=== PATIENT | male | born 1945 | race Caucasian/White ===

== ENCOUNTER 2025-03-04 10:15 | Outpatient (AMB) | payer MEDICARE, SELFPAY ==
--- NOTE | 2025-03-04 10:16 | A.OFFVIS_ITS ---
Intake Visit Reasons: REBAR FABRICATOR/PCP Ref for PAD Intake Note: REBAR FABRICATOR for PVD s/p Left Knee replacement 07/2025. Pt states Left LE cellulitis and discoloration. Pt states he has skin breakdown very easily and when he scratches it he has bleeding. Pt states he has been wearing compression socks when active. Pt does golf. Pt also has some right LE discoloration for many years, possibly 10 years. Exercise Science Internship Required: No Accompanied by: Self / Same As Patient Allergies amoxicillin [From Augmentin] Allergy (Mild, Verified 03/04/25 10:31) unknown clavulanic acid [From Augmentin] Allergy (Mild, Verified 03/04/25 10:31) unknown iodine Allergy (Mild, Verified 03/04/25 10:31) Unknown HPI HPI REBAR FABRICATOR/PCP Ref for PAD: Details: Very pleasant 79-year-old gentleman patient presents for painful varicose veins. Complaints include pain , swelling of lower extremities, cramping, fatigue, and heaviness of the lower extremities, recurrent ulcers of left lower extremity. In addition he notes skin discoloration.. It has been affecting there daily activities including walking. It is noted more so in left leg. He notes it was more significant after his left knee replacement on 08/11/2024 done at [facility]. He had recurrent bouts of cellulitis which was subsequently treated with doxycycline. At the current time he has a nonhealing ulcer on the left calf. Patient denies any previous venous surgery or injections. Patient denies any history of DVT/ PE. Patient denies any history of phlebitis. Trial of compression includes - [id number] They now present for vascular evaluation regarding their varicose veins. [facility] Surgical History (Updated 03/04/25 @ 10:24 by QUINCY Rizo) History of left knee replacement Social History (Updated 03/04/25 @ 10:25 by QUINCY Rizo) Patient Tobacco Use Status: Former Tobacco user Review of Systems Const Reports as per HPI ENT Reports no additional complaints Card Denies chest pain, Denies chest pain at rest and Denies chest pain with activity Resp Denies chest congestion and Denies cough GI Reports no additional complaints Musc Details: pain over varicosities, aching of lower extremities, swelling, cramping, heaviness and tiredness, itching Denies abnormal gait Skin/Breast Reports pruritus and Denies wounds Neuro Reports no additional complaints and Denies abnormal gait Psych Denies no additional complaints Physical Exam Const General: cooperative, healthy appearing and comfortable Orientation/consciousness: oriented to person, oriented to place and oriented to time Neck Carotids: no bruits Chest Chest palpation & inspection: normal inspection of the chest and normal palpation of entire chest wall Resp Effort & Inspection: normal respiratory effort and able to speak in complete sentences Cardio Rate: regular rate Heart sounds: S1 normal heart sound present and S2 normal heart sound present Peripheral pulses: Peripheral pulses 2+ throughout GI Inspection: Yes normal to inspection Skin Other: +2 edema, large rope-like varicosities greater than 4 mm CEAP Classification C6 - left ankle ulcer Ep - Etiology Primary As - superficial veins P - reflux General skin exam: dry skin Neuro General: oriented to person, oriented to place and oriented to time Extrem Right lower extremity: full ROM, normal capillary refill and edema Left lower extremity: full ROM, normal capillary refill and edema Psych Mental Status: mental status grossly normal Assessment & Plan Assessment & Plan (1) Varicose veins of left lower extremity with inflammation: Code(s): I83.12 - Varicose veins of left lower extremity with inflammation Category: Medical Plan: In short, the patient has evidence of venous insufficiency. I have discussed the pathophysiology with the patient. In addition I have provided informational material regarding venous disease to the patient. We have discussed conservative measures including compression, elevation, and exercise. I have also provided a handout regarding appropriate use of compression stockings and where to purchase good compression stockings as well. I have taken the liberty of ordering venous insufficiency testing with the patient. They will follow up with me after testing. The patient had an opportunity to ask questions regarding the treatment plan. All questions were answered. Imaging studies, laboratory studies and physical exam results were discussed and reviewed in detail. No major barriers to understanding were identified. The patient expressed understanding and agreement with the above treatment plan. The patient is aware they should contact our office by phone for worsening of the current condition or the appearance of new symptoms. Thank you for allowing me to participate in the vascular care of this patient. If you have any questions or concerns regarding the treatment for the above condition please do not hesitate to contact me. The office telephone contact is [phone]. This note is constructed using voice recognition software. While every effort has been made to ensure accuracy, cloth stock sorter errors may have been included. Thank you for allowing me to participate in the care of your patient. Yours sincerely, Ravinder Kyle MD, FACS, R.P.V.I. Orders: Orders US venous duplex LE BI 1 Week I83.12 - Varicose veins of left lower extremity with inflammation Coding Level of Care Code New Pt Level 4 (88115) Diagnoses Varicose veins of left lower extremity with inflammation I83.12
--- OUTSIDE RECORDS SUMMARY | 2025-03-04 11:49 | XMS_ITS | Patient Health Record ---
Author Organization [facility] [place] Address [address] [place] [address] Care Team Providers Care Nurse Receptionist Name Role Phone Fanny Hodge MD Primary Care Provider Gabriel Dumont Unavailable [phone] Allergies Allergen (clinical drug ingredient) Drug/Non Drug Allergy documented on EMR Reaction Allergy Type Onset Date Status Iodine facial swelling s/p iodine dye for ct scan Drug Allergy Active Reason For Referral No Information Medications Medication SIG (Take, Route, Frequency, Duration) Notes Start Date End Date Status Aspirin 325 MG 1 tablet Orally Once a day 01/22/2016 Active Voltaren 1 % as directed Transder mal apply bid to affected areas for 30 days Not-Taking Ciclopirox Active Gabapentin 400 MG Orally twice a day Not-Taking Fish Oil 1200 MG 1 capsule Orally Onc e a day 01/22/2016 Active Citalopram Hydrobromide 40 MG Oral for 90 Active Lisinopril 40 MG Oral for 90 A ctive Glucosamine Chond Complex/MSM Orally 01/22/2016 Active Multivitamin Adults 50+ Orally 01/22/2016 Active Lovastatin 20 MG Oral for 90 A ctive Voltaren 1 % as directed Transder mal apply bid to affected areas for 30 days 04/19/2016 Not-Taking Vitamin D3 2000 UNIT Orally 01/22/2016 Active busPIRone HCl 10 MG Oral for 90 Active Social History Tobacco Use: Social History Observation Description Date Details (start date - stop date) Former Smoker NA - NA Tobacco Use/Smoking Question Answer Notes Are you a: former smoker When did you stop smoking? 30 yrs ago Additional Findings: Tobacco Non-User Current no n-smoker Tobacco use other than smoking: Question Answer Notes Are you an other tobacco user? No Plan Of Treatment Pending Test Test Name Order Date X ray : Foot, left 2V 01/26/2016 X ray : Foot, right 2V 01/26/2016 [id number] NAIL, 6 OR MORE 05/16/2017 [id number] NAIL, 6 OR MORE 08/22/2017 [id number] NAIL, 6 OR MORE 12/12/2017 [id number] Plate 04/05/2016 84380- Debride <25 sq cm 04/19/2016 13735- Debride <25 sq cm 12/13/2016 68172- Debride <25 sq cm 12/27/2016 Insurance Providers Payer Name Payer Address Payer Phone Subscriber Number Group Number Insured Name Patient Relationship to Insured Coverage Start Date Coverage End Date Medicare National Govt Sv[employer] Inc [address] [facility] [place] [address] [id number] Mitul Chairez Self - patient is the insured [employer] [address] [place] [address] [id number] Mitul Chairez Self - patient is the insured Medical (General) History Medical History History ICD Code Anxiety bronchitis acute Depression High blood pressure Sciatica Warts Surgical History Surgery Date(Month/Year)
== END 2025-03-04 11:23 | disposition home or self-care (01) ==
PROVIDERS: PCP Nurse Practitioner Family; Visit Provider Surgery Vascular Surgery
DX: I83.12 Varicose veins of left lower extremity with inflammation (principal)
CPT/HCPCS: 99204

== ENCOUNTER → 2025-03-04 10:15 | Outpatient (BNVA) | payer MEDICARE, SELFPAY | PROVIDERS: PCP Nurse Practitioner Family; Visit Provider Surgery Vascular Surgery | DX: I83.12 Varicose veins of left lower extremity with inflammation (principal) | CPT/HCPCS: 99202 ==

== ENCOUNTER 2025-04-01 08:18 | Outpatient (REF) | payer MEDICARE, SELFPAY ==
--- NOTE | ~2025-04-01 | US_ITS ---
EXAMINATION: US LOWER EXTREMITY VENOUS (REFLUX EXAM), BILATERAL CLINICAL INFORMATION: Varices. COMPARISON: None. TECHNIQUE: Color flow triplex imaging and compression Doppler was performed to evaluate both the deep and the superficial systems bilaterally. To evaluate the superficial system, the examination was performed in the upright position. Color-flow Doppler ultrasound and compression ultrasound were utilized. In addition, maneuvers were utilized to demonstrate reflux. FINDINGS: 1. DEEP VENOUS ULTRASOUND OF THE RIGHT LOWER EXTREMITY: Common Femoral Vein: Compressible, normal respiratory variation and augmented flow. Femoral Vein: Compressible, normal color flow and augmentation. Popliteal Vein: Compressible, normal augmentation. Deep Reflux: There is no evidence of reflux in the deep system in either the common femoral vein, superficial femoral or the popliteal vein. There is no evidence of a Barth's cyst. 2. SUPERFICIAL ULTRASOUND WITH DOPPLER OF RIGHT LOWER EXTREMITY: GREAT SAPHENOUS VEIN: Saphenofemoral Junction: 0.8 cm; Reflux: 0 ms Proximal Thigh: 0.4 cm; Reflux: 0 ms Mid Thigh: 0.4 cm; Reflux: 0 ms Distal Thigh: 0.4 cm; Reflux: 0 ms At Knee: 0.3 cm; Reflux: 0 ms Proximal Calf: 0.5 cm; Reflux: 0 ms Mid Calf: 0.3 cm; Reflux: 0 ms Distal Calf: 0.4 cm; Reflux: 0 ms DUPLICATED MEDIAL GREAT SAPHENOUS VEIN: Diameter: None imaged Reflux: NA DUPLICATED LATERAL GREAT SAPHENOUS VEIN: Diameter: None imaged Reflux: NA SMALL SAPHENOUS VEIN: Saphenopopliteal Junction: 0.3 cm; Reflux: 0 ms Proximal: 0.2 cm; Reflux: 0 ms Distal: 0.3 cm; Reflux: 0 ms VEIN OF GIACOMINI: Size: 0.2 cm. Reflux: NA PERFORATORS: Location: Proximal thigh. Proximal to distal calf. Size: 0.2-0.3 cm. Reflux: NA VARICOSITIES: Location: Saphenous vein junction. Size: There are 0.4 cm. Reflux: NA 3. DEEP VENOUS ULTRASOUND OF THE LEFT LOWER EXTREMITY: Common Femoral Vein: Compressible, normal respiratory variation and augmented flow. Femoral Vein: Compressible, normal color flow and augmentation. Popliteal Vein: Compressible, normal augmentation. Deep Reflux: There is no evidence of reflux in the deep system in either the common femoral vein, superficial femoral or the popliteal vein. There is no evidence of a Barth's cyst. 4. SUPERFICIAL ULTRASOUND WITH DOPPLER OF LEFT LOWER EXTREMITY: GREAT SAPHENOUS VEIN: Saphenofemoral Junction: 0.7 cm; Reflux: 0 ms Proximal Thigh: 0.5 cm; Reflux: 0 ms Mid Thigh: 0.5 cm; Reflux: 0 ms Distal Thigh: 0.6 cm; Reflux: 0 ms At Knee: 0.6 cm; Reflux: 1300 ms Proximal Calf: 0.4 cm; Reflux: 0 ms Mid Calf: 0.3 cm; Reflux: 2896 ms Distal Calf: 0.3 cm; Reflux: 708 ms DUPLICATED MEDIAL GREAT SAPHENOUS VEIN: Diameter: 0.4 cm. Reflux: NA DUPLICATED LATERAL GREAT SAPHENOUS VEIN: Diameter: 0.3 cm. Reflux: NA SMALL SAPHENOUS VEIN: Saphenopopliteal Junction: Not identified. Proximal: 0.3 cm; Reflux: 0 ms Distal: 0.2 cm; Reflux: 0 ms VEIN OF GIACOMINI: Size: NA Reflux: NA PERFORATORS: Location: Small saphenous vein mid segment. Mid thigh. Mid to distal calf. Size: 0.2-0.3 cm. Reflux: NA VARICOSITIES: Location: Saphenous vein junction. Proximal to distal calf. At the knee. Size: 0.3-0.5 cm. Reflux: 980 ms at the proximal calf. US/US venous insuf bilat IMPRESSION: Right: No venous insufficiency. Perforators without reflux. Varices without reflux, saphenous vein junction. Left: Venous insufficiency, great saphenous vein at the knee and from the mid calf to the ankle. Varices with reflux in the proximal calf. Electronically signed by: Joaquín Drew MD 04/01/2025 10:23 AM EDT
--- OUTSIDE RECORDS SUMMARY | 2025-04-01 08:23 | XMS_ITS | Patient Health Record ---
Author Organization [facility] [place] Address [address] [place] [address] Care Team Providers Care Billiard Table Assembler Name Role Phone Fanny Hodge MD Primary Care Provider Gabriel Dumont Unavailable [phone] Allergies Allergen (clinical drug ingredient) Drug/Non Drug [...] directed Transder mal apply bid to affected areas; Duration: 30 days Not-Taking Ciclopirox Active Gabapentin 400 MG Orally twice a day Not-Taking Fish Oil 1200 MG 1 capsule Orally Onc e a day 01/22/2016 Active Citalopram Hydrobromide 40 MG Oral; Duration: 90 Active Lisinopril 40 MG Oral; Duration: 90 Active Glucosamine Chond Complex/MSM Orally 01/22/2016 Active Multivitamin Adults 50+ Orally 01/22/2016 Active Lovastatin 20 MG Oral; Duration: 90 Active Voltaren 1 % as directed Transder mal apply bid to affected areas; Duration: 30 days 04/19/2016 Not-Taking Vitamin D3 2000 UNIT Orally 01/22/2016 Active busPIRone HCl 10 MG Oral; Duration: 90 Active Social History Tobacco Use: Social [...] X ray : Foot, right 2V 01/26/2016 [id number] NAIL, 6 OR MORE 05/16/2017 [id number] NAIL, 6 OR MORE 08/22/2017 [id number] NAIL, 6 OR MORE 12/12/2017 [id number] Plate 04/05/2016 35286- Debride <25 sq cm 04/19/2016 26854- Debride <25 sq cm 12/13/2016 57217- Debride <25 sq cm 12/27/2016 Insurance Providers Payer Name Payer Address Payer Phone Subscriber Number Group Number Insured Name Patient Relationship to Insured Coverage Start Date Coverage End Date Medicare National Govt Svcs Inc [address] [place] [address] [id number] Mitul Chairez Self - patient is the insured [employer] [address] [place] [address] [phone] [id number] Mitul Chairez Self - patient is the insured Medical (General) History Medical History History ICD Code Anxiety bronchitis acute Depression High blood pressure Sciatica Warts Surgical History Surgery Date(Month/Year)
--- OUTSIDE RECORDS SUMMARY | 2025-04-01 08:23 | XMS_ITS | Encounter Summary ---
Author Organization [facility] Address [address] [place] [address] Care Team Providers Care Resource Manager Name Role Phone Unavailable Primary Care Provider Unavailabl e Encounter Details Date Type Department Care Team (Late st Contact Info) Description 03/31/2025 Refill [facility] Internal Medicine [address] [place] [address] [phone] Galdino Moulton MD [address] [place], [place] [phone] Social History Tobacco Use Types Packs/Day Years Used Date Smoking Tobacco: Former Cigarettes 1.5 20 0 11/14/1963 - 11/14/1983 Smokeless Tobacco: Never Comments::QUIT 25 YRS AGO [facility] 1.5 PPD FOR 23 YRS Alcohol Use Standard Drinks/Week Comments Yes 0 (1 standard drink = 0.6 oz pur e alcohol) 6 drinks per week [facility] Utilities Answer Date Recorded In the past 12 months has [employer], gas, oil, or water [employer] threatened to shut off services in your home? No 09/05/2024 Hunger Vital Sign Answer Date Recorded Within the past 12 months, y ou worried that your food would run out before you got the money to buy more. Never true 09/05/20 24 Within the past 12 months, t he food you bought just didn't last and you didn't have money to get more. Never true 09/05/2024 Transportation Answer Date Recorded In the past 12 months, has l ack of reliable transportation kept you from medical appointments, meetings, work or from getting things needed for daily living? No 09/05/2024 Housing Answer Date Recorded Housing Risk Low 2 09/05/2024 Housing Risk Medium Not on file 09/05/2024 Housing Risk High Not on file 09/05/2024 What is your living situation today? [facility] 09/05/2024 Education Answer Date Recorded What is the highest level of school you have completed or the highest degree you have received? 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
--- OUTSIDE RECORDS SUMMARY | 2025-04-01 08:23 | XMS_ITS | Patient Health Record ---
[facility] Address [address] [place] [address] Support Name Relationship Address Phone VAIBHAV MAURO Guarantor Unknown [phone] Reason For Referral No Information Plan Of Treatment No Information
--- OUTSIDE RECORDS SUMMARY | 2025-04-01 08:23 | XMS_ITS | Clinical Summary ---
Author Organization [employer] Address [address] [place] [address] Care Team Providers Care Cutter Out Name Role Phone Unavailable Primary Care Provider Unavailabl e Social History Tobacco Use Types Packs/Day Years Used Date Smoking Tobacco: Never Assessed Sex and Gender Information Value Date Recorded Sex Assigned at Male 07/25/2022 10:28 AM EDT Legal Sex Male 10:28 AM EDT Gender Identity Male 07/25/2022 10:28 AM EDT Sexual Orientation Don't know 07/25/2022 10 :28 AM EDT Plan of Treatment Health Maintenance Due Date Last Done Comments Depression Screening 1945 Lipid Panel 1945 Alcohol/Substance Use Screening 1957 Tobacco Screening 1957 Zoster Vaccines (2 of 3) 12/30/2011 11/04/2011 DTaP/Tdap/Td Vaccines (2 - Td or Tdap) 05/05/2019 05/05/2009 RSV Patients and Patients Aged 60 years or older (1 - 1-dose 75+ series) 2020 COVID-19 Vaccine (2 - season) 2024 10/14/2021 Influenza Vaccine (#1) 2025 2, 07/13/2021, 06/16/2020, Additional history exists Pneumococcal Vaccine: 50+ Years Completed 07/23/2015, 10/19/2011 HIB Vaccines Aged Out No longer eligi ble based on patient's age to complete this topic HPV Vaccines Aged Out No longer eligi ble based on patient's age to complete this topic Hepatitis A Vaccines Aged Out No long er eligible based on patient's age to complete this topic Hepatitis B Vaccines Aged Out No long er eligible based on patient's age to complete this topic IPV Vaccines Aged Out No longer eligi ble based on patient's age to complete this topic Meningococcal B Vaccine Aged Out No l onger eligible based on patient's age to complete this topic Meningococcal Vaccine Aged Out No jayde marcus eligible based on patient's age to complete this topic RSV under 20 months Aged Out No longe r eligible based on patient's age to complete this topic Rotavirus Vaccines Aged Out No longer eligible based on patient's age to complete this topic
== END 2025-04-01 08:19 | disposition home or self-care (01) ==
LOC: HO.US 08:18
PROVIDERS: PCP Nurse Practitioner Family; Visit Provider Surgery Vascular Surgery
DX: I83.12 Varicose veins of left lower extremity with inflammation (principal)
CPT/HCPCS: 93970

== ENCOUNTER → 2025-04-01 08:23 | Outpatient (BNV) | payer MEDICARE, SELFPAY | PROVIDERS: PCP Nurse Practitioner Family; Visit Provider Radiology Diagnostic Radiology | DX: I83.892 Varicose veins of left lower extremity with other complications (principal); I83.891 Varicose veins of right lower extremity with other complications | CPT/HCPCS: 93970 ==

== ENCOUNTER 2025-05-06 08:55 | Outpatient (AMB) | payer MEDICARE, SELFPAY ==
--- NOTE | 2025-05-06 09:04 | MHC.OFFVIS ---
Intake Visit Reasons: follow up s/p US 04/01/25 Intake Note: Patient presents for follow up US. No complaints. Accompanied by: Self / Same As Patient Allergies amoxicillin (From Augmentin) Allergy (Mild, Verified 05/06/25 09:05) unknown clavulanic acid (From Augmentin) Allergy (Mild, Verified 05/06/25 09:05) unknown iodine Allergy (Mild, Verified 05/06/25 09:05) Unknown HPI HPI follow up s/p 04/01/25: Details: Very pleasant 79-year-old gentleman presents for evaluation regarding venous disease. He has significantly swollen and uncomfortable left lower extremity varicosities. He now presents for follow-up with venous insufficiency testing. Of note he has been compliant with his compression with minimal limp relief. He now presents for follow-up. [facility] Surgical History History of left knee replacement Social History Patient Tobacco Use Status: Former Tobacco user Review of Systems Const Reports as per HPI ENT Reports no additional complaints Card Denies chest pain, Denies chest pain at rest and Denies chest pain with activity Resp Denies chest congestion and Denies cough GI Reports no additional complaints Musc Details: pain over varicosities, aching of lower extremities, swelling, cramping, heaviness and tiredness, itching Denies abnormal gait Skin/Breast Reports pruritus and Denies wounds Neuro Reports no additional complaints and Denies abnormal gait Psych Denies no additional complaints Physical Exam Const General: cooperative, healthy appearing and comfortable Orientation/consciousness: oriented to person, oriented to place and oriented to time Neck Carotids: no bruits Chest Chest palpation & inspection: normal inspection of the chest and normal palpation of entire chest wall Resp Effort & Inspection: normal respiratory effort and able to speak in complete sentences Cardio Rate: regular rate Heart sounds: S1 normal heart sound present and S2 normal heart sound present Peripheral pulses: Peripheral pulses 2+ throughout GI Inspection: Yes normal to inspection Skin Other: +2 edema, large rope-like varicosities greater than 4 mm CEAP Classification C4 - skin color changes Ep - Etiology Primary As - superficial veins P - reflux General skin exam: dry skin Neuro General: oriented to person, oriented to place and oriented to time Extrem Right lower extremity: full ROM, normal capillary refill and edema Left lower extremity: full ROM, normal capillary refill and edema Psych Mental Status: mental status grossly normal Results Reviewed Results Reviewed: Brief summary of venous insufficiency testing is as follows: right great saphenous vein: negative right small saphenous vein: negative right accessory vein: none present left great saphenous vein: Positive left small saphenous vein: negative left accessory vein: none present Please note there is no evidence of any venous aneurysms or significant tortuosity Assessment & Plan Assessment & Plan (1) Varicose veins of left lower extremity with inflammation: Code(s): I83.12 - Varicose veins of left lower extremity with inflammation Category: Medical Plan: This patient has varicose veins with inflammation. They continue to be a source of discomfort for the patient. The patient has tried conservative treatment with compression, leg elevation and exercise program for over 3 months time. They have been compliant with all treatment. This has provided minimal relief for the patient. I do not anticipate this course of treatment will alter the underlying etiology. The patient has been scheduled for lower extremity venous treatment inclusive of --- left leg microphlebectomy. Risks, benefits, and complications of this procedure has been discussed in detail with the patient including but not limited to bleeding, infection, and the development of a DVT. The patient has demonstrated a clear understanding and has consented. We will schedule the patient as soon as possible. Thank you for allowing us to participate in this patient's care. If there are any questions or concerns please do not hesitate to contact us. Coding Level of Care Code Est Pt Level 4 (60594) Diagnoses Varicose veins of left lower extremity with inflammation I83.12
--- OUTSIDE RECORDS SUMMARY | 2025-05-06 09:22 | XMS_ITS | Patient Health Record ---
[facility] Address [address] [place] [address] Support Name Relationship Address Phone VAIBHAV MAURO Guarantor Unknown [phone] Reason For Referral No Information Plan Of Treatment No Information
--- OUTSIDE RECORDS SUMMARY | 2025-05-06 09:22 | XMS_ITS | Encounter Summary ---
Author Organization [facility] Address [address] [place] [address] Care Team Providers Care Truck Bench Mechanic Name Role Phone Fanny Hodge MD Primary Care Provider [phone] Encounter Details Date Type Department Care Team (Late st Contact Info) Description 10/13/2023 Spruceling Message [facility] PB Revenue Cycle Management [address] [place] [address] Mychart, Generic Provider [address] [place], [place] [id number] TDAP vaccine and administration of vaccine on 08/03/23 Social History Tobacco Use Types Packs/Day Years Used Date Smoking Tobacco: Former Cigarettes 1.5 20 0 11/14/1963 - 11/14/1983 Smokeless Tobacco: Never Comments::QUIT 25 YRS AGO [place] EVIOUS 1.5 PPD FOR 23 YRS Alcohol Use Standard Drinks/Week Comments Yes 0 (1 standard drink = 0.6 oz pur e alcohol) 6 drinks per week Hunger Vital Sign Answer Date Recorded Within the past 12 months, y ou worried that your food would run out before you got the money to buy more. Never true 06/16/20 20 Within the past 12 months, t he food you bought just didn't last and you didn't have money to get more. Never true 06/16/2020 Transportation Answer Date Recorded Please sera the areas for ich the patient would like information or assistance: None Apply 08/03/2023 In the past 12 months, has l ack of transportation kept you from medical appointments or from getting medications? No 08/03/2023 Housing Stability Answer Date Recorded Please sera the areas for ich the patient would like information or assistance: None Apply 08/03/2023 Unable to Pay for Housing in the Last Year Not o n file 08/03/2023 Last EPDS Total Score Not on file 08/03/2023 Unstable Housing in the Last Year Not on file 08/03/2023 Education Answer Date Recorded What is the highest level of school you have completed or the highest degree you have received? 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
--- OUTSIDE RECORDS SUMMARY | 2025-05-06 09:22 | XMS_ITS | Patient Health Record ---
Author Organization [facility] [place] Address [address] [facility] [place] [address] Care Team Providers Care Financial Reporting Advisor Name Role Phone Fanny Hodge MD Primary Care Provider Gabriel Dumont Unavailable [phone] Allergies Allergen (clinical drug ingredient) Drug/Non Drug [...] X ray : Foot, right 2V 01/26/2016 [id number] NAIL, 6 OR MORE 05/16/2017 [id number] NAIL, 6 OR MORE 08/22/2017 [id number] NAIL, 6 OR MORE 12/12/2017 [id number] Plate 04/05/2016 46615- Debride <25 sq cm 04/19/2016 17525- Debride <25 sq cm 12/13/2016 36844- Debride <25 sq cm 12/27/2016 Insurance Providers Payer Name Payer Address Payer Phone Subscriber Number Group Number Insured Name Patient Relationship to Insured Coverage Start Date Coverage End Date Medicare National Govt Svcs Inc [address] [facility] [address] [id number] Mitul Chairez Self - patient is the insured [employer] Preferred [address] [place] [address] [id number] Mitul Chairez Self - patient is the insured Medical (General) History Medical History History ICD Code Anxiety bronchitis acute Depression High blood pressure Sciatica Warts Surgical History Surgery Date(Month/Year)
--- OUTSIDE RECORDS SUMMARY | 2025-05-06 09:22 | XMS_ITS | Clinical Summary ---
Author Organization [employer] Address [address] [facility] [address] [place] [address] Care Team Providers Care Investor Relations Associate Name Role Phone Unavailable Primary Care Provider [...]
== END 2025-05-06 09:53 | disposition home or self-care (01) ==
LOC: HO.HVS 08:56
PROVIDERS: PCP Nurse Practitioner Family; Visit Provider Surgery Vascular Surgery
DX: I83.12 Varicose veins of left lower extremity with inflammation (principal)
CPT/HCPCS: 99214

== ENCOUNTER → 2025-05-06 08:55 | Outpatient (BNVA) | payer MEDICARE, SELFPAY | PROVIDERS: PCP Nurse Practitioner Family; Visit Provider Surgery Vascular Surgery | DX: I83.12 Varicose veins of left lower extremity with inflammation (principal) | CPT/HCPCS: 99212 ==

== ENCOUNTER 2025-05-30 07:22 | Outpatient (AMB) | payer MEDICARE, SELFPAY ==
--- OUTSIDE RECORDS SUMMARY | 2025-05-30 07:25 | XMS_ITS | Patient Health Record ---
[facility] Address [address] [facility] [address] [place] [address] Support Name Relationship Address Phone VAIBHAV MAURO Guarantor Unknown [phone] Reason For Referral No Information Plan Of Treatment No Information
--- OUTSIDE RECORDS SUMMARY | 2025-05-30 07:25 | XMS_ITS | Patient Health Record ---
Author Organization [facility] [place] Address [address] [facility] [place] [address] Care Team Providers Care Emery Wheel Molder Name Role Phone Fanny Hodge MD Primary Care Provider Gabriel Dumont [phone] Allergies Allergen (clinical drug ingredient) Drug/Non Drug [...] X ray : Foot, right 2V 01/26/2016 [id number] NAIL, 6 OR MORE 05/16/2017 [id number] NAIL, 6 OR MORE 08/22/2017 [id number] NAIL, 6 OR MORE 12/12/2017 [id number] Plate 04/05/2016 34766- Debride <25 sq cm 04/19/2016 26134- Debride <25 sq cm 12/13/2016 29499- Debride <25 sq cm 12/27/2016 Insurance Providers Payer Name Payer Address Payer Phone Subscriber Number Group Number Insured Name Patient Relationship to Insured Coverage Start Date Coverage End Date Medicare National Govt Svcs Inc [address] [place] [address] [id number] Mitul Chairez Self - patient is the insured [employer] Preferred [address] [place] [address] [id number] Mitul Chairez Self - patient is the insured Medical (General) History Medical History History ICD Code Anxiety bronchitis acute Depression High blood pressure Sciatica Warts Surgical History Surgery Date(Month/Year)
--- OUTSIDE RECORDS SUMMARY | 2025-05-30 07:25 | XMS_ITS | Encounter Summary ---
Author Organization [facility] Address [address] [place] [address] Care Team Providers Care Harness Inspector Name Role Phone Fanny Hodge MD Primary Care Provider [phone]- [phone] Encounter Details Date Type Department Care Team (Late st Contact Info) Description 10/13/2023 alooma Message [facility] PB Revenue Cycle Management [address] [place] [address] Mychart, Generic Provider [address] [place], [place] [id number] TDAP vaccine and administration of vaccine on 08/03/23 Social History Tobacco Use Types Packs/Day Years Used Date Smoking Tobacco: Former Cigarettes 1.5 20 0 11/14/1963 - 11/14/1983 Smokeless Tobacco: Never Comments::QUIT 25 YRS AGO [place] EVIOUS 1.5 PPD FOR 23 YRS Alcohol [...] Master's degree (e.g., MA, MS, Dianelys, MEd, ONCOLOGY RADIATION PHYSICIAN, CASEY) 06/11/2019 Sex and Gender Information Value Date Recorded Sex Assigned at Male 06/16/2020 9:25 AM EDT Legal Sex Male 1:19 AM EDT Gender Identity Male 06/16/2020 9:25 AM EDT Sexual Orientation Straight 06/16/2020 9: 25 AM EDT 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
--- OUTSIDE RECORDS SUMMARY | 2025-05-30 07:26 | XMS_ITS | Encounter Summary ---
Author Organization [employer] Address [address] [place] [address] [address] [place] [address] Care Team Providers Care Rn Informatics Name Role Phone Unavailable Primary Care Provider Unavailabl e Encounter Details Date Type Department Care Team (Latest Contact Info) Description 03/17/2022 Abstract [facility] CONVERSIONS Dental, Provider, DDS Social History Tobacco Use Types Packs/Day Years Used Date Smoking Tobacco: Never Assessed Sex and Gender Information Value Date Recorded Sex Assigned at Male 07/25/2022 10:28 AM EDT Legal Sex Male 10:28 AM EDT Gender Identity Male 07/25/2022 10:28 AM EDT Sexual Orientation Don't know 07/25/2022 10 :28 AM EDT documented as of this encounter Plan of Treatment Not on file documented as of this encounter Visit Diagnoses Not on filedocumented in this encounter
--- OUTSIDE RECORDS SUMMARY | 2025-05-30 07:26 | XMS_ITS | Clinical Summary ---
Author Organization [facility] Address [address] [place] [address] Care Team Providers Care Mate Fourth Name Role Phone Unavailable Primary Care Provider Unavailabl e Allergies Active Allergy Reactions Criticality Noted Date Comments Amoxicillin-Pot Clavulanate Rash 01/14/20 21 rash everwhere on body, joints stiffened up especially hands Iodinated Contrast Media Swelling High 10/13/2021 Iodine Unknown 10/13/2021 Other Swelling High Allergen: Iodinated Contrast Media Medications * This document contains information received from the source organization and may not represent a complete record from that organization. busPIRone (BUSPAR) 10 mg tablet Take 1 tablet by mouth twice daily 180 tablet 3 4 06/22/20 25 Active lovastatin (MEVACOR) 20 mg tabletIndications:H yperlipidemia, unspecified hyperlipidemia type Take 2 tablets (40 mg total) by mouth once a day. 180 tablet 3 4 Active citalopram (CeleXA) 40 mg tabletIndications:D epression with anxiety Take 1 tablet (40 mg total) by mouth once a day. 90 tablet 4 Active oxyCODONE IR (ROXICODONE) 5 mg tablet Take 5 mg by mouth nightly as needed. Active torsemide (DEMADEX) 10 mg tablet Take 10 mg by mouth once a day. Active traMADoL (ULTRAM) 50 mg tablet Take 50 mg by mouth daily as needed. Active acetaminophen (TYLENOL) 325 mg tablet Take 650 mg by mouth every 6 hours as needed for pain. 4 Active melatonin-theanine 10-5.5 mg tablet Take 10 mg by mouth at bed time. 4 Active aspirin tablet 325 mg Take 325 mg by mouth 2 (two) times a day. Active lisinopriL (PRINIVIL,ZESTRIL) 40 mg tablet Take 1 tablet (40 mg total) by mouth once a day. 90 tablet 3 5 Active Active Problems Problem Noted Date Diagnosed Date Depression 09/05/2024 Assessment & Plan (09/05/2024 11:42 AM EST): PHQ-9 today is 0 Continue citalopram 40 mg daily Continue buspirone 10 mg daily Onychomycosis of toenail 05/10/2016 Peripheral neuropathy 07/23/2015 Erectile dysfunction 07/23/2015 Overview (06/25/2022): Diagnosis updated to reflect regulatory changes Other abnormal glucose 10/19/2011 Dysthymic disorder 06/27/2009 Anxiety disorder 06/27/2009 Assessment & Plan (09/05/2024 11:42 AM EST): RBIAN-7 today is 1 Continue citalopram 40 mg daily Continue buspirone 10 mg daily Class 3 severe obesity with body mass index (BMI) of 40.0 to 44.9 in adult 05/06/2009 Assessment & Plan (09/05/2024 11:42 AM EST): Patient has made an impressive change in losing weight, his weight is 264 pounds today compared to 284 pounds last visit. Will continue to monitor. Hypertension 09/14/2005 Assessment & Plan (09/05/2024 11:42 AM EST): Blood pressure at goal Continue lisinopril 40 mg daily Discontinue torsemide 10 mg daily Hyperlipidemia 09/14/2005 Assessment & Plan (09/05/2024 11:42 AM EST): Lipid panel done in January 2024 shows LDL at goal Patient continues on lovastatin 40 mg daily Resolved Problems Problem Noted Date Diagnosed Date Resolved Date Paronychia of right index finger 11/26/2020 10/13/2021 Rash 02/07/2019 09/05/2024 Overview (02/07/2019): Left distal leg and ankle rash Biopsied by derm - venous stasis Pain in right foot 04/18/2013 2 Left knee pain 04/18/2013 09/05/2024 Encounters Date Type Department Care Team Description 04/04/2025 Refill [facility] Internal Medicine [address] [place] [id number] Galdino Moulton MD 03/31/2025 Refill [facility] Internal Medicine [address] [place] [address] Galdino Moulton MD from Last 3 Months Immunizations Immunization Administration Dates Next Due COVID-19, Moderna, mRNA, LNP -S, Bivalent Booster, PF 08/02/2022 COVID-19, Pfizer, mRNA, Biva lent Booster, PF, 30 mcg/0.3 mL dose (for age 12 y and up) 08/10/2023 Covid-19 Monovalent Vaccine, Moderna, mRNA, PF 03/10/2022 Covid-19, Moderna, mRNA, Vac cine, PF, 50 mcg/0.5 mL (for age 12 y and up) 08/10/2023 Covid-19, Pfizer, mRNA, Ogle valent, PF 30 mcg/0.3 mL dose (for ages 12 and older) 10/14/2021,01/12/2021,12/20/2020 INFLUENZA, SPLIT VIRUS, TRIVALENT, PF ,07/26/2011,11/05/2009,06/19 Influenza, High Dose Seasona l, Preservative Free (FLUZONE HIGH-DOSE) 07/02/2024,07/16/2017,05/28/2015 Influenza, High Dose Seasona l, Quadrivalent PF 08/03/2023 Influenza, Injectable, Quadr ivalent, Contains Preservative 07/26/2022,07/13/2021,06/16/2020,10/10,09/13/2018 Influenza, Trivalent, MDV, Injectable 06/19/2014 Influenza, Unspecified 07/16/2017 Pneumococcal Conjugate Vacci ne, 13 Valent 07/23/2015 Pneumococcal Polysaccharide Vaccine, 23 Valent 10/19/2011 RSV vaccine, recombinant, pr otein subunit RSVpreF, adjuvant reconstituted, 0.5 mL, PF 08/10/2023 RSV, Bivalent, Protein Subun it RSVpreF, Diluent Reconstituted, 0.5 mL, PF 08/10/2023 Tetanus Toxoid, Reduced Diph theria Toxoid, and Acellular Pertussis Vaccine, Adsorbed 08/03/2023,05/05/2009 Zoster Vaccine, Live 11/04/2011 Family History Medical History Relation Name Comments Myocardial Infarction Brother o f respiratory issues Other Brother Family History of diabetes mellitus Schizophrenia Brother Other Father Family history of Coronary Artery Disease /Family History of peptic ulcer Other Father's Brother Family Hist ory of alcoholism Other Mother Family history of Essential Hypertension /Family history of Coronary Artery Disease Relation Name Status Comments Brother Father Father's Brother Maternal Grandfather Maternal Grandmother Mother Paternal Grandfather Paternal Grandmother Social History Tobacco Use Types Packs/Day Years Used Date Smoking Tobacco: Former Cigarettes 1.5 20 0 11/14/1963 - 11/14/1983 Smokeless Tobacco: Never Tobacco Cessation:Counseling Given: Not Answered Comments::QUIT 25 YRS AGO PREVIOUS 1.5 PPD FOR 23 YRS Alcohol Use Standard Drinks/Week Comments Yes 0 (1 standard drink = 0.6 oz pur e alcohol) 6 drinks per week [facility] Utilities Answer Date Recorded In the past 12 months has e [employer], gas, oil, or water [employer] threatened to shut off services in your [...] Master's degree (e.g., MA, MS, Dianelys, MEd, CLINICAL NURSING PROFESSOR, CASEY) 06/11/2019 Sex and Gender Information Value Date Recorded Sex Assigned at Male 06/16/2020 9:25 AM EDT Legal Sex Male 1:19 AM EDT Gender Identity Male 06/16/2020 9:25 AM EDT Sexual Orientation Straight 06/16/2020 9: 25 AM EDT 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 Not on file Not o n file Last Filed Vital Signs Vital Sign Reading Time Taken Comments Blood Pressure 132/87 09/05/2024 8:58 AM EST Pulse 75 09/05/2024 8:58 AM EST Temperature 36.8 C (98.2 F) 09/05/2024 8:58 AM EST Respiratory Rate - - Oxygen Saturation 98% 09/05/2024 8:58 AM EST Inhaled Oxygen Concentration - - Weight 119.7 kg (264 lb) 09/05/2024 8:58 AM EST Height 174.5 cm (5' 8.7 ) 09/05/2024 8:58 AM EST Body Mass Index 39.33 09/05/2024 8:58 AM EST Plan of Treatment Health Maintenance Due Date Last Done Comments Medicare AWV 08/03/2024 08/03/2023, 11/0 09/2021, 07/13/2021, Additional history exists Alcohol/Substance Use Screening 09/25/2024 09/05/2024 Depression Screening and Follow-Up 09/25/2024 09/05/2024 Fall Risk Screening 09/25/2024 04/13/2023, 07/26/2022, 12/10/2020 Health Care Proxy Review 09/25/2024 08/03/2023 Social Drivers of Health Annual Screening 09/25/2024 COVID-19 Vaccine ( season) 2025 08/10/2023, 08/10/2023, 08/02/2022, Additional history exists Influenza Vaccine (#1) 2025 4, 08/03/2023, 07/26/2022, Additional history exists Basic Metabolic Panel 09/05/2025 09/05/2024 , 01/29/2024, 07/18/2023, Additional history exists Zoster Vaccines (2 of 3) 09/05/2025 11/04/2011 Pos tponed from 12/30/2011 (Other Medical Reason) DTaP,Tdap,and Td Vaccines (3 - Td or Tdap) 08/03/2033 08/03/2023, 05/05/2009 Tobacco Screening 09/25/2042 09/05/2024 Colon Cancer Screening Discontinued Colonoscopy Discontinued 12/04/2014, 12/04/2014 Pneumococcal Vaccine: 50+ Years Completed 07/23/2015, 10/19/2011 RSV Vaccine (60+ years old and patients) Completed 08/10/2023, 08/10/2023 Cologuard Discontinued FOBT / Fit Test Discontinued Hepatitis B Vaccines Aged Out No long er eligible based on patient's age to complete this topic Hepatitis C Screening Discontinued Sigmoidoscopy Discontinued Procedures * Due to [place] law, this organization might not be sharing negative HIV tests. Procedure Name Priority Date/Time Associated Diagnosis Comments COMPREHENSIVE METABOLIC PANEL Routine 09/05/2024 10:38 AM EST Transition of care HM COLONOSCOPY Routine 12/04/2014 12:56 PM EDT from Last 3 Months or Most Recently Relevant to Health Maintenance Results * Due to [place] law, this organization might not be sharing negative HIV tests. * Comprehensive metabolic panel (09/05/2024 10:38 AM EST) Glucose 88 65 - 99 mg/dL 09/05/2024 6:39 PM EST [employer] [facility] Comment: Fasting reference interval BUN 18 7 - 25 mg/dL 09/05/2024 6:39 PM EST [employer] [facility] Creatinine 0.95 0.70 - 1.28 mg/dL 09/05/2024 6:39 PM EST [employer] [facility] eGFR 82 > OR = 60 mL/min/1. 73m2 09/05/2024 6:39 PM EST [employer] [facility] Bun/Creatinine Ratio SEE NOTE: 6 - 22 (calc) 09/05/2024 6:39 PM EST [employer] [facility] Comment: Not Reported: BUN and Creatinine are within reference range. Sodium 138 135 - 146 mmol/L 09/05/2024 6:39 PM EST [employer] [facility] Potassium 4.5 3.5 - 5.3 mmol/L 09/05/2024 6:39 PM EST [employer] Chloride 99 98 - 110 mmol/L 09/05/2024 6:39 PM EST [employer] [facility] Carbon Dioxide 32 20 - 32 mmol/L 09/05/2024 6:39 PM EST [employer] [facility] Calcium 9.6 8.6 - 10.3 mg/dL 09/05/2024 6:39 PM EST [employer] Protein, Total 7.0 6.1 - 8.1 g/dL 09/05/2024 6:39 PM EST [employer] [facility] Albumin 4.3 3.6 - 5.1 g/dL 09/05/2024 6:39 PM EST [employer] [facility] Globulin 2.7 1.9 - 3.7 g/dL (calc) 09/05/2024 6:39 PM EST [employer] [facility] Albumin/Globuli n Ratio 1.6 1.0 - 2.5 (calc) 09/05/2024 6:39 PM EST [employer] [facility] Bilirubin, Total 0.4 0.2 - 1.2 mg/dL 09/05/2024 6:39 PM [employer] [facility] Alkaline Phosphatase 76 35 - 144 U/L 09/05/2024 6:39 PM EST [employer] [facility] AST 14 10 - 35 U/L 09/05/2024 6:39 PM EST [employer] [facility] ALT 11 9 - 46 U/L 09/05/2024 6:39 PM [employer] [facility] Blood Structure of peripheral vein / Unknown 09/05/2024 10:38 AM EST 09/05/2024 4:09 PM EST us Galdino Moulton MD LAB BLOOD ORDERABLE S Final Result [facility] [address], [place] [address], [facility] [address] [id number] * COLONOSCOPY (12/04/2014 12:56 PM EDT) Colonoscopy diverticulosis sigmoid dr yani izquierdo repeat in 10 yrs [facility] 12/04/2014 12:5 6 PM EDT us Fanny Hodge MD HEALTH MAINTENANCE Final R esult [facility] [address] [place], [place] [phone] from Last 3 Months or Most Recently Relevant to Health Maintenance Insurance MEDICARE [facility]
--- OUTSIDE RECORDS SUMMARY | 2025-05-30 07:26 | XMS_ITS | Clinical Summary ---
Author Organization [employer] Address [address] [facility] [address] [place] [address] Care Team Providers Care Muffle Worker Name Role Phone Unavailable Primary Care Provider [...] series) 2020 COVID-19 Vaccine (2 - season) 2025 10/14/2021 Influenza Vaccine (#1) 2025 2, 07/13/2021, [...]
--- NOTE | 2025-05-30 07:29 | MHC.OFFVIS ---
Intake Visit Reasons: Left Leg Venaseal Accompanied by: Self / Same As Patient Allergies amoxicillin (From Augmentin) Allergy (Mild, Verified 05/30/25 07:30) unknown clavulanic acid (From Augmentin) Allergy (Mild, Verified 05/30/25 07:30) unknown iodine Allergy (Mild, Verified 05/30/25 07:30) Unknown [facility] Surgical History History of left knee replacement Social History Patient Tobacco Use Status: Former Tobacco user Office Procedures Vascular Office Procedure Details Details: Diagnosis: Left Leg varicose veins with inflammation Procedure: Endovenous Ablation of the left Great Saphenous Vein with VenaSeal Closure System Anesthesia: Local infiltration 5 cc, Clinic Office Coordinator: none Estimated Blood Loss: min Specimen: none Duplex ultrasound was used to map out the insufficient saphenous vein, and access was determined and marked on the overlying skin. The depth and diameter of the vein(s) to be treated was documented. The patient was placed supine on the procedure table and the leg was prepped and draped using sterile technique. Ultasound guidance was again used to localize the access site. 1% lidocaine was injected as a local anesthetic in the subcutaneous tissues at the target location in the GSV in the lower leg. Using ultrasound guidance, access was gained at this location with the 19 gauge thin walled access needle and followed by introduction of a short guidewire, location confirmed with ultrasound. A small, 3 mm incision was made at the access site to allow for introduction and placement of the 7 Fr x7cm introducer/dilator. The dilator and guidewire were removed. The 0.035 guidewire from the VenaSeal kit was then introduced and positioned at the saphenofemoral junction using ultrasound guidance. The 80 cm 7 Fr introducer sheath/dilator was positioned 5cm from the saphenofemoral junction. The guidewire and dilator were removed, and the remaining sheath was flushed with sterile saline, with the syringe remaining in place prior to the next steps. The cyanoacrylate adhesive was precisely primed into the 5 F delivery catheter and this catheter/syringe combination was attached within the dispenser gun. This assembly was introduced through the 7F sheath and positioned 5 cm caudal of the saphenofemoral junction under ultrasound guidance. The steps from the IFU were followed for dispensing amounts, locations and compression times, 2 aliquots proximally with 3 minutes of compression, and 1 aliquot every 3 cm distally with 30 sec of compression along the course of the vessel. Following the last injection and compression sequence, the catheter and introducer sheath were pulled out from the access site. Hemostasis was achieved with manual compression and an adhesive bandage was applied to the incision. Ultrasound confirmed complete coaptation and closure of the treated segments of the GSV, and the absence of any DVT at the saphenofemoral junction. Treatment time was approximately 6 minutes and the vein length treated was 32 cm. The drapes were removed and the patient cleaned and prepared for discharge. Post op ultrasound check is scheduled for 48-72 hours and the patient was given written post-op instructions. 04109 - Endoven Ther Chem Adhes 1st All charges added?: Procedure code (CPT) selection complete Assessment & Plan Assessment & Plan (1) Varicose veins of left lower extremity with inflammation: Comment: 05/30/2025 - left great saphenous vein Cyanoacralate ablation Code(s): I83.12 - Varicose veins of left lower extremity with inflammation Category: Medical Plan: See op note Coding Level of Care Code Procedure Only Diagnoses Varicose veins of left lower extremity with inflammation I83.12 CPT Codes Details - Vascular 3: 10973 - Endoven Ther Chem Adhes 1st ([id number])
== END 2025-05-30 08:14 | disposition home or self-care (01) ==
LOC: HO.HVS 07:22
PROVIDERS: PCP Nurse Practitioner Family; Visit Provider Surgery Vascular Surgery
DX: I83.12 Varicose veins of left lower extremity with inflammation (principal)
CPT/HCPCS: 36482

== ENCOUNTER → 2025-05-30 07:22 | Outpatient (BNVA) | payer MEDICARE, SELFPAY | PROVIDERS: PCP Nurse Practitioner Family; Visit Provider Surgery Vascular Surgery | DX: I83.12 Varicose veins of left lower extremity with inflammation (principal) | CPT/HCPCS: 36482; J2003 ==

== ENCOUNTER 2025-06-17 08:58 | Outpatient (AMB) | payer MEDICARE, SELFPAY ==
--- NOTE | 2025-06-17 08:59 | MHC.OFFVIS ---
Intake Visit Reasons: 2 week follow up left venaseal Intake Note: Patient presents for two week follow up venaseal . States he had some soreness for about a week , better now. Accompanied by: Self / Same As Patient Allergies amoxicillin (From Augmentin) Allergy (Mild, Verified 06/17/25 09:03) unknown clavulanic acid (From Augmentin) Allergy (Mild, Verified 06/17/25 09:03) unknown iodine Allergy (Mild, Verified 06/17/25 09:03) Unknown HPI HPI 2 week follow up left venaseal: Details: The patient is a 79-year-old male presenting with a follow-up after a venous seal procedure on the left great saphenous vein. The procedure was performed to address venous insufficiency, primarily due to leg pain and discomfort. Post-procedure, the patient reports minimal soreness and significant reduction in swelling or noticeable improvement in leg heaviness. The patient continues to experience indentation molina from compression socks, which is considered normal. He now presents for routine postprocedure follow-up [facility] Surgical History History of left knee replacement Social History Patient Tobacco Use Status: Former Tobacco user Review of Systems Const Reports as per HPI ENT Reports no additional complaints Card Denies chest pain, Denies chest pain at rest and Denies chest pain with activity Resp Denies chest congestion and Denies cough GI Reports no additional complaints Musc Details: pain over varicosities, aching of lower extremities, swelling, cramping, heaviness and tiredness, itching Denies abnormal gait Skin/Breast Reports pruritus and Denies wounds Neuro Reports no additional complaints and Denies abnormal gait Psych Denies no additional complaints Physical Exam Const General: cooperative, healthy appearing and comfortable Orientation/consciousness: oriented to person, oriented to place and oriented to time Neck Carotids: no bruits Chest Chest palpation & inspection: normal inspection of the chest and normal palpation of entire chest wall Resp Effort & Inspection: normal respiratory effort and able to speak in complete sentences Cardio Rate: regular rate Heart sounds: S1 normal heart sound present and S2 normal heart sound present Peripheral pulses: Peripheral pulses 2+ throughout GI Inspection: Yes normal to inspection Skin Other: +2 edema, large rope-like varicosities greater than 4 mm CEAP Classification C4 - skin color changes Ep - Etiology Primary As - superficial veins P - reflux General skin exam: dry skin Neuro General: oriented to person, oriented to place and oriented to time Extrem Right lower extremity: full ROM, normal capillary refill and edema Left lower extremity: full ROM, normal capillary refill and edema Psych Mental Status: mental status grossly normal Assessment & Plan Assessment & Plan (1) Varicose veins of left lower extremity with inflammation: Comment: 05/30/2025 - left great saphenous vein Cyanoacralate ablation Code(s): I83.12 - Varicose veins of left lower extremity with inflammation Category: Medical Plan: During the visit, I discussed with the patient the current status of his left leg post-procedure and the expected gradual improvement over time. I explained that if the leg does not show significant improvement, we might consider additional interventions such as compression pumps. The patient was advised to continue using compression stockings and to return for a follow-up in three months unless symptoms improve significantly. Plan Patient was informed and verbally consented to the use of an ambient scribe for clinic note documentation during this visit. Patient Instructions: - Continue wearing compression stockings as advised. - Schedule a follow-up appointment in three months. - Monitor symptoms and contact the office if there is no improvement or if symptoms worsen. Coding Level of Care Code Est Pt Level 3 (30677) Diagnoses Varicose veins of left lower extremity with inflammation I83.12
--- OUTSIDE RECORDS SUMMARY | 2025-06-17 10:16 | XMS_ITS | Encounter Summary ---
Author Organization [facility] Address [address] [place] [address] Care Team Providers Care Mental Health Associate Name Role Phone Fanny Hodge MD Primary Care Provider [phone] Encounter Details Date Type Department Care Team (Late st Contact Info) Description 10/13/2023 Plan B Acqusitions Message [facility] [employer] Management [address] [place] [address] Mychart, Generic Provider [address] [place], [place] [id number] TDAP vaccine and administration of vaccine on 08/03/23 Social History Tobacco Use Types Packs/Day Years Used Date Smoking Tobacco: Former Cigarettes 1.5 20 0 11/14/1963 - 11/14/1983 Smokeless Tobacco: Never Comments::QUIT 25 YRS AGO MS EVIOUS 1.5 PPD FOR 23 YRS Alcohol [...] Master's degree (e.g., MA, MS, Dianelys, MEd, REPRINT SORTER, CASEY) 06/11/2019 Sex and Gender Information Value Date Recorded Sex Assigned at Male 06/16/2020 9:25 AM EDT Legal Sex Male 1:19 AM EDT Gender Identity Male 06/16/2020 9:25 AM EDT Sexual Orientation Straight 06/16/2020 9: 25 AM EDT 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
--- OUTSIDE RECORDS SUMMARY | 2025-06-17 10:16 | XMS_ITS | Clinical Summary ---
Author Organization [facility] Address [address] [place] [address] Care Team Providers Care Cork Insulation Setter Name Role Phone Unavailable Primary Care Provider [...] Assessment & Plan (09/05/2024 11:42 AM EST): BRIAN-7 today is 1 Continue citalopram 40 mg [...] Type Department Care Team Description 04/04/2025 Refill [facility] [address] [place] [id number] Galdino Moulton MD 03/31/2025 Refill [facility] [address] [place] [id number] Galdino Moulton MD from Last 3 Months [...] y and up) 08/10/2023 Covid-19, Pfizer, mRNA, [place] valent, PF 30 mcg/0.3 mL dose (for [...] pur e alcohol) 6 drinks per week [facility] Utilities Answer Date Recorded In the past 12 months has e [employer], gas, oil, or water [employer] threatened to shut off services in your [...] Master's degree (e.g., MA, MS, Dianelys, MEd, OCCASIONAL CAREGIVER, CASEY) 06/11/2019 Sex and Gender Information Value Date Recorded Sex Assigned at Male 06/16/2020 9:25 AM EDT Legal Sex Male 1:19 AM EDT Gender Identity Male 06/16/2020 9:25 AM EDT Sexual Orientation Straight 06/16/2020 9: 25 AM EDT 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 Procedure Name Priority Date/Time Associated Diagnosis Comments COMPREHENSIVE METABOLIC PANEL Routine 09/05/2024 10:38 AM EST Transition of care HM COLONOSCOPY Routine 12/04/2014 12:56 PM EDT from Last 3 Months or Most Recently Relevant to Health Maintenance Results * Due to [place] law, this organization might not be sharing negative HIV tests. * Comprehensive metabolic panel (09/05/2024 10:38 AM EST) Glucose 88 65 - 99 mg/dL 09/05/2024 6:39 PM EST [employer] [facility] Comment: Fasting reference interval BUN 18 7 - 25 mg/dL 09/05/2024 6:39 PM EST [employer] [facility] Creatinine 0.95 0.70 - 1.28 mg/dL 09/05/2024 6:39 PM EST [employer] [facility] eGFR 82 > OR = 60 mL/min/1. 73m2 09/05/2024 6:39 PM EST [employer] [facility] Bun/Creatinine Ratio SEE NOTE: 6 - 22 (calc) 09/05/2024 6:39 PM EST [employer] [facility] Comment: Not Reported: BUN and Creatinine are within reference range. Sodium 138 135 - 146 mmol/L 09/05/2024 6:39 PM EST [employer] [facility] Potassium 4.5 3.5 - 5.3 mmol/L 09/05/2024 6:39 PM EST [employer] Chloride 99 98 - 110 mmol/L 09/05/2024 6:39 PM EST [employer] [facility] Carbon Dioxide 32 20 - 32 mmol/L 09/05/2024 6:39 PM EST [employer] [facility] Calcium 9.6 8.6 - 10.3 mg/dL 09/05/2024 6:39 PM EST [employer] Protein, Total 7.0 6.1 - 8.1 g/dL 09/05/2024 6:39 PM EST [employer] [facility] Albumin 4.3 3.6 - 5.1 g/dL 09/05/2024 6:39 PM EST [employer] [facility] Globulin 2.7 1.9 - 3.7 g/dL (calc) 09/05/2024 6:39 PM EST [employer] [facility] Albumin/Globuli n Ratio 1.6 1.0 - 2.5 (calc) 09/05/2024 6:39 PM EST [employer] [facility] Bilirubin, Total 0.4 0.2 - 1.2 mg/dL 09/05/2024 6:39 PM [employer] [facility] Alkaline Phosphatase 76 35 - 144 U/L 09/05/2024 6:39 PM EST [employer] [facility] AST 14 10 - 35 U/L 09/05/2024 6:39 PM EST [employer] [facility] ALT 11 9 - 46 U/L 09/05/2024 6:39 PM [employer] [facility] Blood Structure of peripheral vein / Unknown 09/05/2024 10:38 AM EST 09/05/2024 4:09 PM EST us Galdino Moulton MD LAB BLOOD ORDERABLE S Final Result [facility] [address], [place] [address], [facility] [address] [address] * COLONOSCOPY (12/04/2014 12:56 PM EDT) Colonoscopy diverticulosis sigmoid dr yani izquierdo repeat in 10 yrs [facility] 12/04/2014 12:5 6 PM EDT us Fanny Hodge MD HEALTH MAINTENANCE Final R esult [facility] [address] [place], [place] [phone] from Last 3 Months or Most Recently Relevant to Health Maintenance Insurance MEDICARE [facility]
--- OUTSIDE RECORDS SUMMARY | 2025-06-17 10:16 | XMS_ITS | Clinical Summary ---
Author Organization [employer] Address [address] [place] [address] Care Team Providers Care Gem Setter Name Role Phone Unavailable Primary Care [...]
--- OUTSIDE RECORDS SUMMARY | 2025-06-17 10:16 | XMS_ITS | Patient Health Record ---
[facility] Address [address] [place] [address] Support Name Relationship Address Phone VAIBHAV MAURO Guarantor Unknown [phone] Reason For Referral No Information Plan Of Treatment No Information
--- OUTSIDE RECORDS SUMMARY | 2025-06-17 10:16 | XMS_ITS | Encounter Summary ---
Author Organization [employer] Address [address] [place] [address] [address] [place] [address] Care Team Providers Care Last Repairer Name Role Phone Unavailable Primary Care Provider Unavailabl e Encounter Details Date Type Department Care Team (Latest Contact Info) Description 03/17/2022 Abstract [facility] CONVERSIONS Dental, Provider, DDS Social History Tobacco [...]
--- OUTSIDE RECORDS SUMMARY | 2025-06-17 10:16 | XMS_ITS | Patient Health Record ---
Author Organization [facility] [place] Address [address] [place] [address] Care Team Providers Care Clutch Rebuilder Name Role Phone Fanny Hodge MD Primary Care Provider Gabriel Dumont Unavailable [phone] Allergies Allergen (clinical drug ingredient) Drug/Non Drug [...] X ray : Foot, right 2V 01/26/2016 [id number] NAIL, 6 OR MORE 05/16/2017 [id number] NAIL, 6 OR MORE 08/22/2017 [id number] NAIL, 6 OR MORE 12/12/2017 [id number] Plate 04/05/2016 87820- Debride <25 sq cm 04/19/2016 22635- Debride <25 sq cm 12/13/2016 51168- Debride <25 sq cm 12/27/2016 Insurance Providers Payer Name Payer Address Payer Phone Subscriber Number Group Number Insured Name Patient Relationship to Insured Coverage Start Date Coverage End Date Medicare National [employer] [address] [place] [address] [id number] Mitul Chairez Self - patient is the insured [employer] [address] [place] [address] [id number] Mitul Chairez Self - patient is the insured Medical (General) History Medical History History ICD Code Anxiety bronchitis acute Depression High blood pressure Sciatica Warts Surgical History Surgery Date(Month/Year)
== END 2025-06-17 09:17 | disposition home or self-care (01) ==
LOC: HO.HVS 08:59
PROVIDERS: PCP Nurse Practitioner Family; Visit Provider Surgery Vascular Surgery
DX: I83.12 Varicose veins of left lower extremity with inflammation (principal)
CPT/HCPCS: 99213

== ENCOUNTER → 2025-06-17 08:58 | Outpatient (BNVA) | payer MEDICARE, SELFPAY | PROVIDERS: PCP Nurse Practitioner Family; Visit Provider Surgery Vascular Surgery | DX: Z48.812 Encounter for surgical aftercare following surgery on the circulatory system (principal); I83.12 Varicose veins of left lower extremity with inflammation; Z98.890 Other specified postprocedural states | CPT/HCPCS: 99212 ==